=== PATIENT | male | born 1960 | race Caucasian/White ===

== ENCOUNTER 2018-07-05 23:45 | Emergency (ER) | payer OTHER ==
[~2018-07-05] VITALS: Ht 165.1 cm; Wt 101.7 kg
[2018-07-06 00:01] VITALS: Ht 165.1 cm; Wt 101.7 kg
[2018-07-06] MEDS ORDERED: KETOROLAC 60 MG INJ IM STA (00:40)
--- NOTE | 2018-07-06 00:42 | ERD ---
ER Documentation Chief Complaint Chief Complaint pt fell carry object, has bruising to chest, R shoulder pain HPI 57-year-old male, previously healthy, right-handed, presents the emergency department, complaining of right shoulder pain after sustaining a ground-level fall while the patient was moving furniture at his house approximately 1 hour prior to arrival. The patient landed on the right side, no head trauma, no loss of consciousness, he is complaining of dull pain, constant, 7/10, associated with decreased range of motion. He denies distal weakness, numbness or tingling. ROS All systems reviewed and are negative except as per history of present illness. Medications Home Meds Active Scripts Ibuprofen* (Motrin*) 600 Mg Tab, 600 MG PO Q6H PRN for PAIN AND OR ELEVATED TEMP, #20 TAB Prov:JERONIMO ALEJANDRO MD 07/06/18 Hydrocodone/Acetaminophen ([place] 5-325 Tablet) 1 Each Tablet, 1 TAB PO TID PRN for PAIN, #12 TAB Prov:JERONIMO ALEJANDRO MD 07/06/18 Allergies Allergies: Coded Allergies: No Known Allergy (Unverified , 07/06/18) PMhx/Soc Medical and Surgical Hx: pt denies Medical Hx, pt denies Surgical Hx Hx Alcohol Use: Yes (occassional) Hx Substance Use: No Hx Tobacco Use: No Smoking Status: Never smoker FmHx Family History: No diabetes, No coronary disease Physical Exam Vitals Vital Signs Date Temp Pulse Resp B/P (MAP) Pulse Ox O2 O2 Flow FiO2 Time Delivery Rate 07/06/18 98.6 80 16 150/88 97 Room Air 02:47 (108) 07/06/18 98.9 88 16 166/93 95 00:01 (117) Physical Exam Patient alert, oriented, vital signs stable. HEENT: Normocephalic, atraumatic. EYES: PERRLA, EOMI, Sclera and conjunctiva appear normal. EARS: Canals clear, tympanic membranes WNL. THROAT: Normal oropharynx. NECK: Supple, No lymphadenopathy. Full ROM without pain or tenderness. HEART: RRR, no rubs, murmurs, clicks or gallops. LUNGS: Clear to auscultation. ABDOMEN: Soft, non-tender without masses or hepatosplenomegaly. EXTREMITIES: Right upper extremity slightly abducted with external rotation. Decreased range of motion due to pain. Loss of the normal rounded appearance of the shoulder was noticed. Distal neurovascular exam intact. BACK: Full ROM, no deformity, normal back exam NEURO: Cranial nerves grossly intact, no motor or sensory deficit SKIN: No rashes, no petechia. Results 24 hrs Current Medications Medications Dose Sig/Magdalene Start Time Status Last (Trade) Ordered Route PRN Stop Time Admin Dose Reason Admin Ketorolac 60 mg ONCE STAT 07/06/18 DC 07/06/18 Tromethamine IM 00:40 07/06/18 01:16 (Toradol) 01:01 Morphine 10 mg ONCE ONCE 07/06/18 DC 07/06/18 Sulfate PO 01:00 07/06/18 01:16 (morphine) 01:01 2 mg ONCE STAT 07/06/18 Cancel Hydromorphone IM 01:32 07/06/18 HCl 01:33 (Dilaudid) 1 mg ONCE STAT 07/06/18 DC 07/06/18 Hydromorphone IM 01:38 07/06/18 01:42 HCl 01:39 (Dilaudid) Patient: DANIEL MORTON : 1960 Age: 57 Sex: M MR #: [id number] DOS: 07/06/18 0040 Ordering MD: JERONIMO ALEJANDRO MD Location: [facility] Room/Bed: PROCEDURE: RIGHT SHOULDER CLINICAL INDICATION: 57-year-old male with right shoulder pain. TECHNIQUE: Two-views of the right shoulder were obtained. The images reviewed on a PACS workstation. COMPARISON: None. FINDINGS: There is no evidence for an acute fracture. There is a right anteromedial shoulder dislocation. The acromioclavicular joint appears intact. Limited views of the clavicle and thorax are unremarkable IMPRESSION: Right shoulder dislocation. Patient: DANIEL MORTON : 1960 Age: 57 Sex: M MR #: [id number] DOS: 07/06/18 0201 Ordering MD: JERONIMO ALEJANDRO MD Location: [facility] Room/Bed: PROCEDURE: RIGHT SHOULDER July 06, 2018 at 02:06 a.m. CLINICAL INDICATION: 57-year-old male with right shoulder dislocation. These are post reduction radiographs. TECHNIQUE: Two-views of the right shoulder were obtained. The images reviewed on a PACS workstation. COMPARISON: Right shoulder radiographs July 06, 2018 at 01:03 a.m. FINDINGS: There has been interval reduction of the right shoulder dislocation. There is no definite acute fracture. The glenohumeral is intact. Mild degenerative changes are seen within the acromioclavicular joint. Limited views of the clavicle and thorax are unremarkable. IMPRESSION: 1. Interval reduction right shoulder dislocation. 2. Mild right acromioclavicular joint degenerative changes. .Devon Guevara MD, MD Date Time Procedures/MDM Acute right shoulder pain. Differential diagnosis include but not limited to: Shoulder contusion, dislocation, rotator cuff injury, tendon/ligament injury, arthritis; low suspicion for septic arthritis. Neurovascular exam grossly intact. Physical examination and clinical presentation consistent most likely with right anterior shoulder dislocation. Shoulder Reduction performed by Dr. Read Anesthesia: None Location: Right shoulder Technique: External rotation Results: [employer] of normal anatomic positioning Neurovascularly intact post procedure. Sling Assessment: Neurovascularly intact post sling placement with good fit. Results and clinical impression discussed with the patient who agrees with management. The patient is stable to be treated outpatient and will be discharged home with recommendations for ice, rest and partial immobilization. NSAIDs 3 times daily for 5 days and close monitoring. The patient was instructed to follow up with the primary care provider in the next 48h. If symptoms persist, worsen or new symptoms develop, then patient should return to the ED immediately. Instructions explained and given to patient with acknowledgment and demonstrated understanding. Disclaimer: Inadvertent spelling and grammatical errors are likely due to EHR/dictation software use and do not reflect on the overall quality of patient care. Also, please note that the electronic time recorded on this note does not necessarily reflect the actual time of the patient encounter. Departure Diagnosis: Primary Impression: Dislocation of right shoulder joint Condition: Stable Additional Instructions: Muchas giselle por [facility] para dela cruz servicio. Esperamos que en dela cruz visita a la qi de emergencia dela cruz problema medico haya sido solucionado y que se sienta mucho mejor. Para estar seguros que dela cruz mejoria sigue en proceso, le pedimos el favor de hacer verena truong de seguimiento medico con dela cruz doctor primario en los proximos 2-4 park. Lleve con usted estos documentos y las medicinas recetadas. Si ed sintomas empeoran, NO SE ESPERE, por favor regrese a qi de emergencia INMEDIATAMENTE. En chris que usted no tenga un mdico de atencin primaria: Llame al mdico o clnica comunitaria de referencia que aparece abajo kaylene las horas de consultorio para hacer verena truong para que le vean. CLINICAS: [facility] [phone] [facility] [phone] [facility] [phone] [address] [facility] [facility] [phone] [place] [id number] [phone] [facility] [phone] JERONIMO EDWARDS MD Jul 06, 2018 00:42
[2018-07-06] MEDS ORDERED: morphine LIQ (10 MG/5 ML) CUP PO ONE (01:00)
[2018-07-06] MEDS ORDERED: HYDROmorphONE 2 MG/ML SYG IM STA ×2 (01:32→01:38)
[2018-07-06] MEDS ORDERED: HYDR-4011 PO (02:32)
[2018-07-06] MEDS ORDERED: IBUP-1542 PO (02:32)
[2018-07-06 02:47] VITALS: BP 150/88; PULSE 80; RESP 16
== END 2018-07-06 03:04 | disposition home or self-care (01) ==
LOC: FTE 23:45
DX: S43.101A Unspecified dislocation of right acromioclavicular joint, initial encounter (principal); W18.39XA Other fall on same level, initial encounter; Y92.009 Unspecified place in unspecified non-institutional (private) residence as the place of occurrence of the external cause
CPT/HCPCS: 23650; 73030; 96372; J1170; J1885; Z7502; Z7610

== ENCOUNTER 2018-07-13 18:30 | Emergency (ER) | payer OTHER ==
[~2018-07-13] VITALS: Ht 162.6 cm; Wt 100.8 kg
[~2018-07-13 18:30] MED LIST: HYDR-4011 PO; IBUP-1542 PO
[2018-07-13 18:31] VITALS: BP 184/94; PULSE 92; RESP 19; Ht 162.6 cm; Wt 100.8 kg
--- NOTE | 2018-07-14 06:21 | ERD ---
ER Documentation Chief Complaint Chief Complaint RIGHT SHOULDER PAIN/INJ X5DAY HPI Patient is a 57-year-old male who presents here today requesting a work extension. Patient initially seen here in July 08, 2018. X-rays at that time revealed a right shoulder dislocation which was reduced. Patient was sent home with pain medication and a no work note for 3 days. Patient returns again requesting extension of his no work. Patient denies any new injuries to his right shoulder. He denies any numbness, tingling, focal weakness. He has full range of motion of his fingers. Patient otherwise has no other complaints. He is only requesting a work extension note. No other complaints. ROS All systems reviewed and are negative except as per history of present illness. Medications Home Meds Active Scripts Ibuprofen* (Motrin*) 600 Mg Tab, 600 MG PO Q6H PRN for PAIN AND OR ELEVATED TEMP, #20 TAB Prov:JERONIMO ALEJANDRO MD 07/06/18 Hydrocodone/Acetaminophen ([place] 5-325 Tablet) 1 Each Tablet, 1 TAB PO TID PRN for PAIN, #12 TAB Prov:JERONIMO ALEJANDRO MD 07/06/18 Allergies Allergies: Coded Allergies: No Known Allergy (Unverified , 07/06/18) PMhx/Soc Hx Miscellaneous Medical Probl: Yes (LEFT SHOULDER DISLOCATION 07/23) Hx Alcohol Use: Yes (occassional) Hx Substance Use: No Hx Tobacco Use: No Smoking Status: Never smoker Physical Exam Vitals Vital Signs Date Temp Pulse Resp B/P (MAP) Pulse Ox O2 O2 Flow FiO2 Time Delivery Rate 07/13/18 99.0 92 19 184/94 99 18:31 (124) Physical Exam Const: No acute distress Head: Atraumatic Eyes: Normal Conjunctiva ENT: Normal External Ears, Nose and Mouth. Neck: Full range of motion. No meningismus. Resp: Clear to auscultation bilaterally Cardio: Regular rate and rhythm, no murmurs Abd: Soft, non tender, non distended. Normal bowel sounds Skin: No petechiae or rashes Back: No midline or flank tenderness Ext: + right shoulder in sling. Has full range of motion of his right fingers. Cap refill less than 2 seconds. Medial, radial, and ulnar sensation intact. Neur: Awake and alert Psych: Normal Mood and Affect Procedures/MDM MDM: Records reviewed. Patient is a 57-year-old male presents requesting work extension. He was initially seen here on July 08, 2018. X-ray at that time revealed a right shoulder dislocation which was reduced. Patient was discharged with a no work no times 1 week. He presents again today requesting an extension of his work excuse. He has not yet established care by primary care physician. He denies any new injuries. He is neurovascularly intact. Pain is adequately controlled. I provided patient a work excuse note for the next 1 week. I recommended he establish care at either [facility] or [facility] as his shoulder needs to be followed up regularly by either an orthopedist or a primary care physician. Patient understands. Strict return precautions discussed. Blood Pressure Assessment: Patient's blood pressure was elevated (>120/80) but appears stable without evidence of hypertension emergency or urgency. The patient was counseled about the risks of hypertension and urged to pursue outpatient monitoring and therapy within a week with their primary care physician. Departure Diagnosis: Primary Impression: Shoulder injury Encounter type: subsequent encounter Laterality: right Qualified Codes: S49.91XD - Unspecified injury of right shoulder and upper arm, subsequent encounter Condition: Stable Patient Instructions: Dislocations (Shoulder, Jaw, Elbow, Finger) Referrals: [facility] Additional Instructions: Paciente aconseja volver a Departamento de urgencias inmediatamente para sntomas nuevos o que empeoran . Paciente aconseja posteriores con el PCP en 1-2 velasquez. Si el paciente no tiene ninguna de atencin primaria pueden seguir con [facility] [id number] [place] [address] o [facility] + [address] [address] NATALIE PUENTES PA-C Jul 14, 2018 06:21
== END 2018-07-13 19:26 | disposition home or self-care (01) ==
LOC: FTE 18:30
DX: S49.91XD Unspecified injury of right shoulder and upper arm, subsequent encounter (principal); X58.XXXD Exposure to other specified factors, subsequent encounter
CPT/HCPCS: 99282